=== PATIENT | male | born 1960 | race Caucasian/White ===

== ENCOUNTER 2022-10-04 03:10 | Emergency (ER) | payer OTHER ==
[~2022-10-04] VITALS: Ht 177.8 cm; Wt 93.5 kg
[2022-10-04] MEDS ORDERED: LISINOPRIL-HCT1 EAC1 PO (03:26)
[2022-10-04] MEDS ORDERED: ASPIRIN81 MG PO (03:26)
[2022-10-04] MEDS ORDERED: MULTI VITAMIN1 EACH PO (03:27)
[2022-10-04] MEDS ORDERED: PENICILLIN V P500 MG PO (04:36)
--- NOTE | 2022-10-04 14:03 | EKG ---
[facility] [address] [facility] [place] [address] Signed Normal sinus rhythm Normal ECG No previous ECGs available Confirmed by AARON SÁNCHEZ MD ([id number] on 10/04/2022 2:03:44 PM Electronically Signed By: AARON SÁNCHEZ MD 10/04/22 1403 PATIENT NAME: TOLU ESTRADA Electrocardiogram DATE OF : 56 PHYSICIAN: AARON SÁNCHEZ MD REPORT #: [id number] REPORT IS CONFIDENTIAL AND NOT TO BE RELEASED WITHOUT AUTHORIZATION
== END 2022-10-04 05:12 | disposition home or self-care (01) ==
LOC: ED 03:10
DX: R55 Syncope and collapse (principal); S02.42XA Fracture of alveolus of maxilla, initial encounter for closed fracture; S01.511A Laceration without foreign body of lip, initial encounter; S03.2XXA Dislocation of tooth, initial encounter; I10 Essential (primary) hypertension; Z79.899 Other long term (current) drug therapy; Z79.82 Long term (current) use of aspirin; W18.39XA Other fall on same level, initial encounter
CPT/HCPCS: 36415; 40650; 70450; 70486; 80053; 85025; 93005; 93010; 99284-25